=== PATIENT | female | born 1990 | race Caucasian/White ===

== ENCOUNTER 2016-10-27 11:42 | Emergency (ER) | payer OTHER ==
[2016-10-27 12:42] LABS: MEAN CORPUSCULAR HEMOGLOBIN 30.2 pg (27.0-33.0); MEAN CORPUSCULAR HGB CONC 33.4 g/dl (32.0-36.5); MEAN CORPUSCULAR VOLUME 90.7 fl (80.0-96.0); RED CELL DISTRIBUTION WIDTH 12.8 % (11.5-14.5); WHITE BLOOD COUNT 6.9 K/mm3 (4.0-10.0)
[2016-10-27 12:46] LABS: CONTROL LINE HCG INT CTR LINE PRESENT
[2016-10-27 13:03] LABS: ALBUMIN 3.8 GM/DL (3.2-5.2); ALBUMIN/GLOBULIN RATIO 1.09 (1.00-1.93); ALKALINE PHOSPHATASE 40 U/L (45-117); ALT/SGPT 62 U/L (12-78); ANION GAP 9 MEQ/L (8-16); AST/SGOT 35 U/L (15-37); BILIRUBIN,DIRECT 0.1 MG/DL (0.0-0.2); BILIRUBIN,TOTAL 0.4 MG/DL (0.2-1.0); BLOOD UREA NITROGEN 14 MG/DL (7-18); CALCIUM LEVEL 8.6 MG/DL (8.5-10.1); CARBON DIOXIDE LEVEL 24 MEQ/L (21-32); CHLORIDE LEVEL 109 MEQ/L (98-107); CREATININE FOR GFR 0.68 MG/DL (0.55-1.02); GLOMERULAR FILTRATION RATE > 60.0 (>60); GLUCOSE, FASTING 92 MG/DL (70-105); POTASSIUM SERUM 4.2 MEQ/L (3.5-5.1); SODIUM LEVEL 142 MEQ/L (136-145); TOTAL PROTEIN 7.3 GM/DL (6.4-8.2)
[2016-10-27 13:18] LABS: AMPHETAMINES LEVEL URINE NEGATIVE (NEGATIVE); BENZODIAZEPINES URINE NEGATIVE (NEGATIVE); COCAINE METABOLITE URINE NEGATIVE (NEGATIVE); CONTROL LINE INT CTR LINE PRESENT; METHADONE URINE NEGATIVE (NEGATIVE); OPIATES URINE NEGATIVE (NEGATIVE); TRICYCLIC ANTIDEPRESS URINE NEGATIVE (NEGATIVE)
[2016-10-27] MEDS ORDERED: ACETAMINOPHEN 325 MG TAB As Ordered ONE (13:49)
--- NOTE | 2016-10-27 15:52 | EDDOCDS ---
Physician Documentation [facility] Name: Deena Nye Age: 25 yrs Sex: Female : 1990 Arrival Date: 10/27/2016 Time: 11:[address] [facility] [facility] Private MD: Arnold Velasquez Disposition: 10/27/16 15:36 Discharged to Home/Self Care. Impression: Major depressive disorder, single episode, mild. - Condition is Stable. - Discharge Instructions: Depression, Adult. - Medication Reconciliation, Local Pharmacy Hours form. - Follow up: Arnold Velasquez; When: 2 - 3 days; Reason: Recheck today's complaints. - Problem is new. - Symptoms have improved. - Notes: You were seen in the ED for concerns of depression. Bloodwork showed no acute findings. Psychiatry was consulted and recommended that you may return home to continue following with mental health as an outpatient. Please call today to confirm your next appointment. Return to the ED for any worsening depression, thoughts of harming self or others or any other concerns. Historical: - Allergies: SULFA (SULFONAMIDES); - Home Meds: 1. Lexapro 30 mg Oral once daily (Last dose: 10/26/2016) 2. metformin 500 mg Oral tr24 1 tab once daily (Last dose: 10/26/2016) 3. Klonopin Unknown Oral Unknown pt unsure of dosage. medication just perscribed today. pt has yet to take medication. - PMHx: Polycystic Ovary Disease; Anxiety; Depression; - PSHx: Colonoscopy; Ear Tubes; - Social history: Smoking status: Patient states was never smoker of tobacco. No barriers to communication noted, The patient speaks fluent Romansh. - Family history: No immediate family members are acutely ill. - : The pt / caregiver states he / she is not on anticoagulants. Home medication list is obtained from the patient. - Exposure Risk Screening:: None identified. 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 3 in. (160.02 cm); Pain 0/10; 15:47 BP 146 / 86; Pulse 74; Resp 16; Temp 98.4(T); Pulse Ox 98% on R/A; Pain 3/10; sew 11:44 Body Mass Index 38.97 (99.79 kg, 160.02 cm) cmb MDM: 12:05 Consult PFS/PSA/Courtroom Clerk ordered. br1 12:05 Consult PFS/PSA/Courtroom Clerk: Patient's case requires discussion with on-call br1 Psychiatrist ordered. 12:05 PSA/PFS to call Nursing Digester, to enter patient data on [place] Safe Act if patient br1 involuntarily admitted or transferred for SI or HI ordered. 12:05 Confirm accurate psychiatric medication list and times of last dosage ordered. br1 12:05 Detain Pt Until Medically/PFS Cleared ordered. br1 12:06 Acetaminophen Level Ordered. EDMS 12:07 Basic Metabolic Profile Ordered. EDMS 12:07 Complete Blood Count Ordered. EDMS 12:07 Drug Eval Toxicology ED Only Ordered. EDMS 12:07 Ethyl Alcohol (ethanol) Ordered. EDMS 12:07 HCG,Serum Qualitative Ordered. EDMS 12:07 Liver Profile Ordered. EDMS 12:07 Salicylate Level Ordered. EDMS 12:07 Thyroid Stimulating Hormone Ordered. EDMS 12:22 REGULAR DIET PLASTIC OROZCO+DIET ordered. EDMS 13:28 Acetaminophen Level Reviewed. br1 13:28 Basic Metabolic Profile Reviewed. br1 13:28 Liver Profile Reviewed. br1 13:28 Salicylate Level Reviewed. br1 13:28 Complete Blood Count Reviewed. br1 13:28 Drug Eval Toxicology ED Only Reviewed. br1 13:28 Ethyl Alcohol (ethanol) Reviewed. br1 13:28 HCG,Serum Qualitative Reviewed. br1 13:28 Thyroid Stimulating Hormone Reviewed. br1 13:43 Acetaminophen Tablet 650 mg PO once ordered. br1 13:56 Consult PFS/PSA/Socail Worker: Cleared medically for eval ordered. br1 14:22 Consult PFS/PSA/Courtroom Clerk complete. ms 14:22 Consult PFS/PSA/Courtroom Clerk: Patient's case requires discussion with on-call ms Psychiatrist complete. 14:22 PSA/PFS to call Nursing Digester, to [place] patient data [place] Safe [place] if patient ms involuntarily admitted or transferred for SI or HI complete. 14:22 Consult PFS/PSA/Socail Worker: Cleared medically for eval complete. ms 15:50 Financial registration complete. zo Administered Medications: 13:55 Drug: Acetaminophen 650 mg [acetaminophen 325 mg tablet (2 tabs)] Route: PO; mb9 Signatures: Dispatcher [employer] Ronda Ziegler, PSA PSA Rosio Cates Brian, MD MD br1 Ross Mobley RN RN mb9 MTDD
--- NOTE | 2016-10-27 15:52 | EDDOCDS ---
Nurse's Notes [facility] Name: Deena Nye Age: 25 yrs Sex: Female : 1990 Arrival Date: 10/27/2016 Time: 11:[address] MD: Arnold Velasquez Diagnosis: Major depressive disorder, single episode, mild Presentation: 10/27 11:46 Presenting complaint: Patient states: Sent here by counselor for MHE increased mlb1 depression denies SI. Mental Health Triage Level: Level 1- Pt displays no suicidal or homicidal ideations and does not appear to be a danger to self or others. Adult Sepsis Screening: The patient does not have new or worsening altered mentation. Patient's respiratory rate is less than 22. Systolic blood pressure is greater than 100. Patient has a qSOFA score of 0- Negative Sepsis Screen. Suicide/Homicide risk assessment- The patient reports that he/she has not been admitted to an inpatient mental health facility in the last 30 days. The patient reports that he/she does not have a recent or current history of substance abuse. The patient reports that he/she has no prior history of suicide attempt and/or organized plan. The patient reports that he/she has experienced a significant life altering event in the last 30 days. The patient reports that he/she lacks adequate social support. The patient reports he/she has no significant chronic medical condition(s). Status: The patient is a dependent. Transition of care: patient was not received from another setting of care. 11:46 Acuity: LOUIE Level 3 mlb1 11:46 Method Of Arrival: Walkin/Carried/Asstd mlb1 Triage Assessment: 11:52 General: Appears in no apparent distress, Behavior is appropriate for age, cooperative. mb9 Pain: Location: headache Pain currently is 3 out of 10 on a pain scale. Pt Declines HIV testing. Neurological: Level of Consciousness is awake, alert, Oriented to person, place, time. Respiratory: Airway is patent Respiratory effort is even, unlabored. 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 Lexapro 30 mg Oral once daily (Last dose: 10/26/2016) 2. metformin 500 mg Oral tr24 1 tab once daily (Last dose: 10/26/2016) 3. Klonopin Unknown Oral Unknown pt unsure of dosage. medication just perscribed today. pt has yet to take medication. - PMHx: Polycystic Ovary Disease; Anxiety; Depression; - PSHx: Colonoscopy; Ear Tubes; - Social history: Smoking status: Patient states was never smoker of tobacco. No barriers to communication noted, The patient speaks fluent Tuvaluan. - Family history: No immediate family members are acutely ill. - : The pt / caregiver states he / she is not on anticoagulants. Home medication list is obtained from the patient. - Exposure Risk Screening:: None identified. Screenin:49 Screening information is obtained from the patient. Fall risk: No risks identified. mb9 Assistance ADL's: requires no assistance with activities of daily living. Abuse/DV Screen: The patient / caregiver reports he/she is: not in a situation that causes fear, pain or injury. Nutritional screening: No deficits noted. Advance Directives: There is no active DNR order. home support is adequate. Assessment: 13:55 Reassessment: Patient appears in no apparent distress at this time. General: Appears in mb9 no apparent distress, comfortable, Behavior is appropriate for age, cooperative, pleasant. Pain: Location: headache Pain currently is 4 out of 10 on a pain scale. Respiratory: Airway is patent Respiratory effort is even, unlabored. 15:31 Reassessment: Patient appears in no apparent distress at this time. General: Appears in mb9 no apparent distress, comfortable, Behavior is appropriate for age, cooperative. General: at bedside. security observing. . Respiratory: Airway is patent Respiratory effort is even, unlabored. Mental Health Eval: 12:02 Referral Information: Evaluation referral is generated by the patient's therapist matty Palmer. The patient was referred for evaluation because Pt reports feeling hopeless and helpless, is suicidal without plan. Per Ms. Palmer, pt miscarried around Brent and has been having marital discord with . 14:23 Mental health consult is initiated at 14:00. Status: The patient is not a ms service desk team lead or dependent. [facility] Behavioral Health: The patient is not an established patient of [facility] Behavior[facility]. Subjective: The patients chief complaint is Pt. reports that she and have been having marital issues and have been going to couples therapy. Pt. reports that in September 2016 she had a miscarriage and that her was supportive, stating they would try again to have another baby. Pt. reports that a few days ago her told her that he had been lying and stated he really does not want to have children. Pt. reports this has been very upsetting for her and now does not know were her marriage stands. She reports that she feels like she just wants to sleep and has not been feeling much of anything towards her . Pt. denies SI/HI, she does contract for safety. Pt. reports she saw her psychiatrist today and briefly saw her therapist who is in same office as psychiatrist although it was not a scheduled appt and was sent here for evaluation. Pt. states that she did not make suicidal statement, rather did say she felt as though she did not want to be here, meaning she did not feel like talking about everything due to feeling overwhelmed. Pt. was communicative during interview , pleasant.. Delusions are denied. Patient's mood is depressed, Hallucinations are denied. Mental Health history: anxiety, depression, Mental Health Admissions: [facility] at age 14. Current Outpatient Mental Health Services: Psychiatrist / [place] [place] [facility]. Therapist / Agency: Marion Hargrove, gricelda . Current living environment is The patient currently lives with his / her spouse, . Patient presents to Emergency Department with the following symptoms within the past 2 weeks: anxiety, depressed mood, marital problem. Substance abuse: Pt denies. Mental status exam: Patients appearance is appropriate, Patient's behavior is cooperative, Speech is normal. Affect is appropriate. Mood is depressed. Hallucinations are denied. Appetite is normal. Memory is good. Energy level is normal. Content of thought is normal. Thought process is intact. Cognitive level is oriented to person, place, time and situation Patient's insight is good. Judgement is good. Rapport with interviewer is good. Suicidal Ideation is denied. Homicidal ideation is denied. Disposition: Medically cleared for disposition by Manuel Mata MD Psychiatric Consult is performed by phone with Dr Baldemar Sorensen The patient has a safe destination which is home with . Vital Signs: 11:44 BP 123 / 75; Pulse 68; Resp 16; Temp 98.3(O); Pulse Ox 100% ; Weight 99.79 kg; Height 5 cmb ft. 3 in. (160.02 cm); Pain 0/10; 15:47 BP 146 / 86; Pulse 74; Resp 16; Temp 98.4(T); Pulse Ox 98% on R/A; Pain 3/10; sew 11:44 Body Mass Index 38.97 (99.79 kg, 160.02 cm) cmb Vitals: 11:44 Log In Time: October 27, 2016 at 11:35. cmb ED Course: 11:43 Patient visited by Goldie Shafer. cmb 11:43 Patient moved to Waiting cmb 11:44 Arnold Velasquez is Private Physician. cmb 11:46 Patient visited by Ross Jay RN. mlb1 11:48 Triage Initiated mlb1 11:54 Patient moved to [place] [id number] 12:06 Manuel Mata MD is Attending Physician. br1 12:09 Patient visited by Manisha Gandhi. sew 12:09 Psych Safety Check: Location: Psych Room. Visual Assessment: Cooperative. sew 12:19 Acetaminophen Level Sent. sew 12:19 Basic Metabolic Profile Sent. sew 12:19 Drug Eval Toxicology ED Only Sent. sew 12:19 Complete Blood Count Sent. sew 12:19 HCG,Serum Qualitative Sent. sew 12:19 Ethyl Alcohol (ethanol) Sent. sew 12:19 Liver Profile Sent. sew 12:19 Salicylate Level Sent. sew 12:19 Thyroid Stimulating Hormone Sent. sew 12:19 Labs drawn. (by ED staff). Sent per order to lab. Urine collected. Clean catch sew specimen. Urine specimen sent to lab. 12:20 Pt greeted and oriented to ED. Patient advised of names of staff involved in care, sew location of call luna, wait times and NPO status. Bed in low position. Call light in reach. Security observing. Door closed. Noise minimized. Moved to private room. Psych Safety Check: Location: Psych Room. Visual Assessment: Cooperative. 12:21 Patient visited by Manisha Gandhi. sew 12:32 Patient visited by Manisha Gandhi. sew 12:32 Psych Safety Check: Location: Psych Room. Visual Assessment: Cooperative. sew 12:49 Patient visited by Manisha Gandhi. sew 12:49 Psych Safety Check: Location: Psych Room. Visual Assessment: Cooperative. sew 13:08 Psych Safety Check: Location: Psych Room. Visual Assessment: Cooperative. sew 13:09 Patient visited by Manisha Gandhi. sew 13:13 Psych Safety Check: Location: Psych Room. Visual Assessment: Cooperative. sew 13:13 Warm blanket given. Diet: Patient given regular meal. sew 13:14 Patient visited by Manisha Gandhi. sew 13:29 Patient visited by Manisha Gandhi. sew 13:29 Psych Safety Check: Location: Psych Room. Visual Assessment: Cooperative, pt family in sew room at this time. 13:40 Patient visited by Manisha Gandhi. sew 13:40 Psych Safety Check: Location: Psych Room. Visual Assessment: Cooperative. sew 13:42 Patient visited by Manuel Mata MD. br1 14:03 Patient visited by Manisha Gandhi. sew 14:03 Psych Safety Check: Location: Psych Room. Visual Assessment: Cooperative. sew 14:16 Psych Safety Check: Location: Psych Room. Visual Assessment: Cooperative. sew 14:17 Patient visited by Manisha Gandhi. sew 14:37 Patient visited by Manisha Gandhi. sew 14:37 Psych Safety Check: Location: Psych Room. Visual Assessment: Cooperative. sew 15:35 Arnold Velasquez is Referral Physician. br1 15:35 Psych Safety Check: Location: Psych Room. Visual Assessment: Cooperative. sew 15:36 Patient visited by Manisha Gandhi. sew 15:47 Patient visited by Manisha Gandhi. sew 15:49 The patient / caregiver is instructed regarding the plan of care and ED course. mb9 15:49 No IV's were initiated during this patient's visit. No procedures done that require mb9 assistance. Administered Medications: 13:55 Drug: Acetaminophen 650 mg [acetaminophen 325 mg tablet (2 tabs)] Route: PO; mb9 Order Results: Lab Order: Acetaminophen Level; SPEC'M 10/27/16 12:18 Test: ACETAMINOPHEN LEVEL; Value: < 2.0; Range: 10.0-30.0; Abnormal: Below low normal; Units: UG/ML; Status: F Lab Order: Basic Metabolic Profile; SPEC'M 10/27/16 12:18 Test: GLUCOSE, FASTING; Value: 92; Range: 70-105; Units: MG/DL; Status: F Test: BLOOD UREA NITROGEN; Value: 14; Range: 7-18; Units: MG/DL; Status: F Test: CREATININE FOR GFR; Value: 0.68; Range: 0.55-1.02; Units: MG/DL; Status: F Test: SODIUM LEVEL; Range: 136-145; Units: MEQ/L; Status: I Test: POTASSIUM SERUM; Range: 3.5-5.1; Units: MEQ/L; Status: I Test: CHLORIDE LEVEL; Range: 98-107; Units: MEQ/L; Status: I Test: CARBON DIOXIDE LEVEL; Range: 21-32; Units: MEQ/L; Status: I Test: ANION GAP; Range: 8-16; Units: MEQ/L; Status: I Test: CALCIUM LEVEL; Range: 8.5-10.1; Units: MG/DL; Status: I Test: GLOMERULAR FILTRATION RATE; Value: > 60.0; Range: >60; Status: F Test: SODIUM LEVEL; Value: 142; Range: 136-145; Units: MEQ/L; Status: F Test: POTASSIUM SERUM; Value: 4.2; Range: 3.5-5.1; Units: MEQ/L; Status: F Test: CHLORIDE LEVEL; Value: 109; Range: 98-107; Abnormal: Above high normal; Units: MEQ/L; Status: F Test: CARBON DIOXIDE LEVEL; Value: 24; Range: 21-32; Units: MEQ/L; Status: F Test: ANION GAP; Value: 9; Range: 8-16; Units: MEQ/L; Status: F Test: CALCIUM LEVEL; Value: 8.6; Range: 8.5-10.1; Units: MG/DL; Status: F Test Note: ; Units are mL/min/1.73 m2 Chronic Kidney Disease Staging per NKF: Stage I & II GFR >=60 Normal to Mildly Decreased Stage III GFR 30-59 Moderately Decreased Stage IV GFR 15-29 Severely Decreased Stage V GFR <15 Very Little GFR Left ESRD GFR <15 on RADIATION PROTECTION SPECIALIST Lab Order: Complete Blood Count; SPEC'M 10/27/16 12:18 Test: WHITE BLOOD COUNT; Value: 6.9; Range: 4.0-10.0; Units: K/mm3; Status: F Test: RED BLOOD COUNT; Value: 4.18; Range: 4.00-5.40; Units: M/mm3; Status: F Test: HEMOGLOBIN; Value: 12.7; Range: 12.0-16.0; Units: g/dl; Status: F Test: HEMATOCRIT; Value: 37.9; Range: 36.0-47.0; Units: %; Status: F Test: MEAN CORPUSCULAR VOLUME; Value: 90.7; Range: 80.0-96.0; Units: fl; Status: F Test: MEAN CORPUSCULAR HEMOGLOBIN; Value: 30.2; Range: 27.0-33.0; Units: pg; Status: F Test: MEAN CORPUSCULAR HGB CONC; Value: 33.4; Range: 32.0-36.5; Units: g/dl; Status: F Test: RED CELL DISTRIBUTION WIDTH; Value: 12.8; Range: 11.5-14.5; Units: %; Status: F Test: PLATELET COUNT, AUTOMATED; Value: 278; Range: 150-450; Units: k/mm3; Status: F Lab Order: Drug Eval Toxicology ED Only; SPEC'M 10/27/16 12:10 Test: AMPHETAMINES LEVEL URINE; Value: NEGATIVE; Range: NEGATIVE; Status: F Test: BARBITURATES URINE; Value: NEGATIVE; Range: NEGATIVE; Status: F Test: BENZODIAZEPINES URINE; Value: NEGATIVE; Range: NEGATIVE; Status: F Test: CANNABINOIDS URINE; Value: NEGATIVE; Range: NEGATIVE; Status: F Test: COCAINE METABOLITE URINE; Value: NEGATIVE; Range: NEGATIVE; Status: F Test: METHADONE URINE; Value: NEGATIVE; Range: NEGATIVE; Status: F Test: OPIATES URINE; Value: NEGATIVE; Range: NEGATIVE; Status: F Test: TRICYCLIC ANTIDEPRESS URINE; Value: NEGATIVE; Range: NEGATIVE; Status: F Test Note: ; ALL PRESUMPTIVE POSITIVE FINDINGS ARE UNCONFIRMED NORMAL VALUES THRESHOLD IN NG/ML AMPHETAMINES 1000 METHAMPHETAMINES 1000 BARBITURATES 300 BENZODIAZEPINES 300 CANNABINOIDS (THC) 50 COCAINE METABOLITE 300 METHADONE 300 OPIATES 300 PHENCYCLIDINE 25 TRICYCLIC ANTIDEPRESSANTS 1000 RESULTS ARE FOR MEDICAL PURPOSES ONLY. ALL URINE SPECIMENS WILL BE SAVED FOR 3 DAYS. IF CONFIRMATION OF A PRESUMPTIVE POSTIVE SCREEN RESULT IS DESIRED, CALL CHEMISTRY ([phone]) AND REQUEST URINE TO BE SENT TO REFERENCE LAB. FOR A LIST OF CLOSELY RELATED COMPOUNDS PLEASE CALL THE LAB. Lab Order: Ethyl Alcohol (ethanol); SPEC'M 10/27/16 12:18 Test: ETHYL ALCOHOL (ETHANOL); Value: < 0.003; Range: 0.000-0.010; Units: %; Status: F Lab Order: HCG,Serum Qualitative; SPEC'M 10/27/16 12:18 Test: HCG, SERUM QUALITATIVE; Value: NEGATIVE; Range: NEGATIVE; Status: F Lab Order: Liver Profile; SPEC'M 10/27/16 12:18 Test: AST/SGOT; Value: 35; Range: 15-37; Units: U/L; Status: F Test: ALT/SGPT; Value: 62; Range: 12-78; Units: U/L; Status: F Test: ALKALINE PHOSPHATASE; Value: 40; Range: 45-117; Abnormal: Below low normal; Units: U/L; Status: F Test: BILIRUBIN,TOTAL; Value: 0.4; Range: 0.2-1.0; Units: MG/DL; Status: F Test: BILIRUBIN,DIRECT; Value: 0.1; Range: 0.0-0.2; Units: MG/DL; Status: F Test: TOTAL PROTEIN; Value: 7.3; Range: 6.4-8.2; Units: GM/DL; Status: F Test: ALBUMIN; Value: 3.8; Range: 3.2-5.2; Units: GM/DL; Status: F Test: ALBUMIN/GLOBULIN RATIO; Value: 1.09; Range: 1.00-1.93; Status: F Lab Order: Salicylate Level; [facility] 10/27/16 12:18 Test: SALICYLATE LEVEL; Value: < 1.7; Range: 5.0-30.0; Abnormal: Below low normal; Units: MG/DL; Status: F Lab Order: Thyroid Stimulating Hormone; SPEC'M 10/27/16 12:18 Test: THYROID STIMULATING HORMONE; Value: 2.180; Range: 0.358-3.740; Units: uIU/ML; Status: F Outcome: 15:36 Discharge ordered by Provider. br1 15:49 Discharge Assessment: Patient awake, alert and oriented x 3. No cognitive and/or mb9 functional deficits noted. Patient verbalized understanding of disposition instructions. patient administered narcotics - no. The following High Risk Discharge criteria are identified: None. Discharged to home ambulatory. Condition: good Condition: stable. Discharge instructions given to patient, Instructed on discharge instructions, follow up and referral plans. Demonstrated understanding of instructions, medications, Pt was receptive of discharge instructions/ teaching. No special radiology studies were completed. Property :Personal belongings accompany Pt. 15:51 Patient left the ED. mb9 Signatures: Soy Martinez, PSA PSA ac Ronda Chun, PSA PSA Ross Walker RN RN mlb1 Manuel Mata MD MD br1 Goldie Shafer Sarah sew Belles, Michael, RN RN mb9 MTDD
--- NOTE | 2016-10-29 16:52 | EDDOCDS ---
Nurse's Notes [facility] Name: Deena Nye Age: 25 yrs Sex: Female : 1990 Arrival Date: 10/27/2016 Time: 11:[address] MD: Arnold Velasquez Diagnosis: Major depressive disorder, single episode, mild Presentation: 10/27 11:46 Presenting complaint: Patient states: Sent here by counselor for MHE increased mlb1 depression denies SI. Mental Health Triage Level: Level 1- Pt displays no suicidal or homicidal ideations and does not appear to be a danger to self or others. Adult Sepsis Screening: The patient does not have new or worsening altered mentation. Patient's respiratory rate is less than 22. Systolic blood pressure is greater than 100. Patient has a qSOFA score of 0- Negative Sepsis Screen. Suicide/Homicide risk assessment- The patient reports that he/she has not been admitted to an inpatient mental health facility in the last 30 days. The patient reports that he/she does not have a recent or current history of substance abuse. The patient reports that he/she has no prior history of suicide attempt and/or organized plan. The patient reports that he/she has experienced a significant life altering event in the last 30 days. The patient reports that he/she lacks adequate social support. The patient reports he/she has no significant chronic medical condition(s). Status: The patient is a dependent. Transition of care: patient was not received from another setting of care. 11:46 Acuity: LOUIE Level 3 mlb1 11:46 Method Of Arrival: Walkin/Carried/Asstd mlb1 Triage Assessment: 11:52 General: Appears in no apparent distress, Behavior is appropriate for age, cooperative. mb9 Pain: Location: headache Pain currently is 3 out of 10 on a pain scale. Pt Declines HIV testing. Neurological: Level of Consciousness is awake, alert, Oriented to person, place, time. Respiratory: Airway is patent Respiratory effort is even, unlabored. CHIPS SCREEN TENDER: 11:52 LMP 08/21/2016 mb9 Historical: - Allergies: SULFA (SULFONAMIDES); - Home Meds: 1. Lexapro 30 mg Oral once daily (Last dose: 10/26/2016) 2. metformin 500 mg Oral tr24 1 tab once daily (Last dose: 10/26/2016) 3. Klonopin Unknown Oral Unknown pt unsure of dosage. medication just perscribed today. pt has yet to take medication. - PMHx: Polycystic Ovary Disease; Anxiety; Depression; - PSHx: Colonoscopy; Ear Tubes; - Social history: Smoking status: Patient states was never smoker of tobacco. No barriers to communication noted, The patient speaks fluent [place]. - Family history: No immediate family members are acutely ill. - : The pt / caregiver states he / she is not on anticoagulants. Home medication list is obtained from the patient. - Exposure Risk Screening:: None identified. Screenin:49 Screening information is obtained from the patient. Fall risk: No risks identified. mb9 Assistance ADL's: requires no assistance with activities of daily living. Abuse/DV Screen: The patient / caregiver reports he/she is: not in a situation that causes fear, pain or injury. Nutritional screening: No deficits noted. Advance Directives: There is no active DNR order. home support is adequate. Assessment: 13:55 Reassessment: Patient appears in no apparent distress at this time. General: Appears in mb9 no apparent distress, comfortable, Behavior is appropriate for age, cooperative, pleasant. Pain: Location: headache Pain currently is 4 out of 10 on a pain scale. Respiratory: Airway is patent Respiratory effort is even, unlabored. 15:31 Reassessment: Patient appears in no apparent distress at this time. General: Appears in mb9 no apparent distress, comfortable, Behavior is appropriate for age, cooperative. General: at bedside. security observing. . Respiratory: Airway is patent Respiratory effort is even, unlabored. Mental Health Eval: 12:02 Referral Information: Evaluation referral is generated by the patient's therapist matty Palmer. The patient was referred for evaluation because Pt reports feeling hopeless and helpless, is suicidal without plan. Per Ms. Palmer, pt miscarried around [place] and has been having marital discord with . 14:23 Mental health consult is initiated at 14:00. 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 [facility] Behavioral Health: The patient is not an established patient of [facility]. Subjective: The patients chief complaint is Pt. reports that she and have been having marital issues and have been going to couples therapy. Pt. reports that in September 2016 she had a miscarriage and that her was supportive, stating they would try again to have another baby. Pt. reports that a few days ago her told her that he had been lying and stated he really does not want to have children. Pt. reports this has been very upsetting for her and now does not know were her marriage stands. She reports that she feels like she just wants to sleep and has not been feeling much of anything towards her . Pt. denies SI/HI, she does contract for safety. Pt. reports she saw her psychiatrist today and briefly saw her therapist who is in same office as psychiatrist although it was not a scheduled appt and was sent here for evaluation. Pt. states that she did not make suicidal statement, rather did say she felt as though she did not want to be here, meaning she did not feel like talking about everything due to feeling overwhelmed. Pt. was communicative during interview , pleasant.. Delusions are denied. Patient's mood is depressed, Hallucinations are denied. Mental Health history: anxiety, depression, Mental Health Admissions: [facility] at age 14. Current Outpatient Mental Health Services: Psychiatrist / Agency: Dr. Shafer, [place] [facility]. Therapist / Agency: Marion Hargrove, gricelda . Current living environment is The patient currently lives with his / her spouse, . Patient presents to Emergency Department with the following symptoms within the past 2 weeks: anxiety, depressed mood, marital problem. Substance abuse: Pt denies. Mental status exam: Patients appearance is appropriate, Patient's behavior is cooperative, Speech is normal. Affect is appropriate. Mood is depressed. Hallucinations are denied. Appetite is normal. Memory is good. Energy level is normal. Content of thought is normal. Thought process is intact. Cognitive level is oriented to person, place, time and situation Patient's insight is good. Judgement is good. Rapport with interviewer is good. Suicidal Ideation is denied. Homicidal ideation is denied. Disposition: Medically cleared for disposition by Manuel Mata MD Psychiatric Consult is performed by phone with Dr Baldemar Sorensen The patient has a safe destination which is home with . Vital Signs: 11:44 BP 123 / 75; Pulse 68; Resp 16; Temp 98.3(O); Pulse Ox 100% ; Weight 99.79 kg; Height 5 cmb ft. 3 in. (160.02 cm); Pain 0/10; 15:47 BP 146 / 86; Pulse 74; Resp 16; Temp 98.4(T); Pulse Ox 98% on R/A; Pain 3/10; sew 11:44 Body Mass Index 38.97 (99.79 kg, 160.02 cm) cmb Vitals: 11:44 Log In Time: October 27, 2016 at 11:35. cmb ED Course: 11:43 Patient visited by Goldie Shafer. cmb 11:43 Patient moved to Waiting cmb 11:44 Arnold Velasquez is Private Physician. cmb 11:46 Patient visited by Ross Jay RN. mlb1 11:48 Triage Initiated mlb1 11:54 Patient moved to [place] [id number] 12:06 Manuel Mata MD is Attending Physician. br1 12:09 Patient visited by Manisha Gandhi. sew 12:09 Psych Safety Check: Location: Psych Room. Visual Assessment: Cooperative. sew 12:19 Acetaminophen Level Sent. sew 12:19 Basic Metabolic Profile Sent. sew 12:19 Drug Eval Toxicology ED Only Sent. sew 12:19 Complete Blood Count Sent. sew 12:19 HCG,Serum Qualitative Sent. sew 12:19 Ethyl Alcohol (ethanol) Sent. sew 12:19 Liver Profile Sent. sew 12:19 Salicylate Level Sent. sew 12:19 Thyroid Stimulating Hormone Sent. sew 12:19 Labs drawn. (by ED staff). Sent per order to lab. Urine collected. Clean catch sew specimen. Urine specimen sent to lab. 12:20 Pt greeted and oriented to ED. Patient advised of names of staff involved in care, sew location of call luna, wait times and NPO status. Bed in low position. Call light in reach. Security observing. Door closed. Noise minimized. Moved to private room. Psych Safety Check: Location: Psych Room. Visual Assessment: Cooperative. 12:21 Patient visited by Manisha Gandhi. sew 12:32 Patient visited by Manisha Gandhi. sew 12:32 Psych Safety Check: Location: Psych Room. Visual Assessment: Cooperative. sew 12:49 Patient visited by Manisha Gandhi. sew 12:49 Psych Safety Check: Location: Psych Room. Visual Assessment: Cooperative. sew 13:08 Psych Safety Check: Location: Psych Room. Visual Assessment: Cooperative. sew 13:09 Patient visited by Manisha Gandhi. sew 13:13 Psych Safety Check: Location: Psych Room. Visual Assessment: Cooperative. sew 13:13 Warm blanket given. Diet: Patient given regular meal. sew 13:14 Patient visited by Manisha Gandhi. sew 13:29 Patient visited by Manisha Gandhi. sew 13:29 Psych Safety Check: Location: Psych Room. Visual Assessment: Cooperative, pt family in sew room at this time. 13:40 Patient visited by Manisha Gandhi. sew 13:40 Psych Safety Check: Location: Psych Room. Visual Assessment: Cooperative. sew 13:42 Patient visited by Manuel Mata MD. br1 14:03 Patient visited by Manisha Gandhi. sew 14:03 Psych Safety Check: Location: Psych Room. Visual Assessment: Cooperative. sew 14:16 Psych Safety Check: Location: Psych Room. Visual Assessment: Cooperative. sew 14:17 Patient visited by Manisha Gandhi. sew 14:37 Patient visited by Manisha Gandhi. sew 14:37 Psych Safety Check: Location: Psych Room. Visual Assessment: Cooperative. sew 15:35 Arnold Velasquez is Referral Physician. br1 15:35 Psych Safety Check: Location: Psych Room. Visual Assessment: Cooperative. sew 15:36 Patient visited by Manisha Gandhi. sew 15:47 Patient visited by Manisha Gandhi. sew 15:49 The patient / caregiver is instructed regarding the plan of care and ED course. mb9 15:49 No IV's were initiated during this patient's visit. No procedures done that require mb9 assistance. 15:52 [facility] Payment Agreement was scanned into [employer] and attached to record. zo 10/28 10:51 T-Sheet-- Draft Copy was scanned into [employer] and attached to record. gb Administered Medications: 10/27 13:55 Drug: Acetaminophen 650 mg [acetaminophen 325 mg tablet (2 tabs)] Route: PO; mb9 Order Results: Lab Order: Acetaminophen Level; SPEC'M 10/27/16 12:18 Test: ACETAMINOPHEN LEVEL; Value: < 2.0; Range: 10.0-30.0; Abnormal: Below low normal; Units: UG/ML; Status: F Lab Order: Basic Metabolic Profile; SPEC'M 10/27/16 12:18 Test: GLUCOSE, FASTING; Value: 92; Range: 70-105; Units: MG/DL; Status: F Test: BLOOD UREA NITROGEN; Value: 14; Range: 7-18; Units: MG/DL; Status: F Test: CREATININE FOR GFR; Value: 0.68; Range: 0.55-1.02; Units: MG/DL; Status: F Test: SODIUM LEVEL; Range: 136-145; Units: MEQ/L; Status: I Test: POTASSIUM SERUM; Range: 3.5-5.1; Units: MEQ/L; Status: I Test: CHLORIDE LEVEL; Range: 98-107; Units: MEQ/L; Status: I Test: CARBON DIOXIDE LEVEL; Range: 21-32; Units: MEQ/L; Status: I Test: ANION GAP; Range: 8-16; Units: MEQ/L; Status: I Test: CALCIUM LEVEL; Range: 8.5-10.1; Units: MG/DL; Status: I Test: GLOMERULAR FILTRATION RATE; Value: > 60.0; Range: >60; Status: F Test: SODIUM LEVEL; Value: 142; Range: 136-145; Units: MEQ/L; Status: F Test: POTASSIUM SERUM; Value: 4.2; Range: 3.5-5.1; Units: MEQ/L; Status: F Test: CHLORIDE LEVEL; Value: 109; Range: 98-107; Abnormal: Above high normal; Units: MEQ/L; Status: F Test: CARBON DIOXIDE LEVEL; Value: 24; Range: 21-32; Units: MEQ/L; Status: F Test: ANION GAP; Value: 9; Range: 8-16; Units: MEQ/L; Status: F Test: CALCIUM LEVEL; Value: 8.6; Range: 8.5-10.1; Units: MG/DL; Status: F Test Note: ; Units are mL/min/1.73 m2 Chronic Kidney Disease Staging per NKF: Stage I & II GFR >=60 Normal to Mildly Decreased Stage III GFR 30-59 Moderately Decreased Stage IV GFR 15-29 Severely Decreased Stage V GFR <15 Very Little GFR Left ESRD GFR <15 on LUMBER KILN OPERATOR Lab Order: Complete Blood Count; SPEC'M 10/27/16 12:18 Test: WHITE BLOOD COUNT; Value: 6.9; Range: 4.0-10.0; Units: K/mm3; Status: F Test: RED BLOOD COUNT; Value: 4.18; Range: 4.00-5.40; Units: M/mm3; Status: F Test: HEMOGLOBIN; Value: 12.7; Range: 12.0-16.0; Units: g/dl; Status: F Test: HEMATOCRIT; Value: 37.9; Range: 36.0-47.0; Units: %; Status: F Test: MEAN CORPUSCULAR VOLUME; Value: 90.7; Range: 80.0-96.0; Units: fl; Status: F Test: MEAN CORPUSCULAR HEMOGLOBIN; Value: 30.2; Range: 27.0-33.0; Units: pg; Status: F Test: MEAN CORPUSCULAR HGB CONC; Value: 33.4; Range: 32.0-36.5; Units: g/dl; Status: F Test: RED CELL DISTRIBUTION WIDTH; Value: 12.8; Range: 11.5-14.5; Units: %; Status: F Test: PLATELET COUNT, AUTOMATED; Value: 278; Range: 150-450; Units: k/mm3; Status: F Lab Order: Drug Eval Toxicology ED Only; SPEC'M 10/27/16 12:10 Test: AMPHETAMINES LEVEL URINE; Value: NEGATIVE; Range: NEGATIVE; Status: F Test: BARBITURATES URINE; Value: NEGATIVE; Range: NEGATIVE; Status: F Test: BENZODIAZEPINES URINE; Value: NEGATIVE; Range: NEGATIVE; Status: F Test: CANNABINOIDS URINE; Value: NEGATIVE; Range: NEGATIVE; Status: F Test: COCAINE METABOLITE URINE; Value: NEGATIVE; Range: NEGATIVE; Status: F Test: METHADONE URINE; Value: NEGATIVE; Range: NEGATIVE; Status: F Test: OPIATES URINE; Value: NEGATIVE; Range: NEGATIVE; Status: F Test: TRICYCLIC ANTIDEPRESS URINE; Value: NEGATIVE; Range: NEGATIVE; Status: F Test Note: ; ALL PRESUMPTIVE POSITIVE FINDINGS ARE UNCONFIRMED NORMAL VALUES THRESHOLD IN NG/ML AMPHETAMINES 1000 METHAMPHETAMINES 1000 BARBITURATES 300 BENZODIAZEPINES 300 CANNABINOIDS (THC) 50 COCAINE METABOLITE 300 METHADONE 300 OPIATES 300 PHENCYCLIDINE 25 TRICYCLIC ANTIDEPRESSANTS 1000 RESULTS ARE FOR MEDICAL PURPOSES ONLY. ALL URINE SPECIMENS WILL BE SAVED FOR 3 DAYS. IF CONFIRMATION OF A PRESUMPTIVE POSTIVE SCREEN RESULT IS DESIRED, CALL CHEMISTRY ([phone]) AND REQUEST URINE TO BE SENT TO REFERENCE LAB. FOR A LIST OF CLOSELY RELATED COMPOUNDS PLEASE CALL THE LAB. Lab Order: Ethyl Alcohol (ethanol); SPEC'M 10/27/16 12:18 Test: ETHYL ALCOHOL (ETHANOL); Value: < 0.003; Range: 0.000-0.010; Units: %; Status: F Lab Order: HCG,Serum Qualitative; SPEC'M 10/27/16 12:18 Test: HCG, SERUM QUALITATIVE; Value: NEGATIVE; Range: NEGATIVE; Status: F Lab Order: Liver Profile; SPEC'M 10/27/16 12:18 Test: AST/SGOT; Value: 35; Range: 15-37; Units: U/L; Status: F Test: ALT/SGPT; Value: 62; Range: 12-78; Units: U/L; Status: F Test: ALKALINE PHOSPHATASE; Value: 40; Range: 45-117; Abnormal: Below low normal; Units: U/L; Status: F Test: BILIRUBIN,TOTAL; Value: 0.4; Range: 0.2-1.0; Units: MG/DL; Status: F Test: BILIRUBIN,DIRECT; Value: 0.1; Range: 0.0-0.2; Units: MG/DL; Status: F Test: TOTAL PROTEIN; Value: 7.3; Range: 6.4-8.2; Units: GM/DL; Status: F Test: ALBUMIN; Value: 3.8; Range: 3.2-5.2; Units: GM/DL; Status: F Test: ALBUMIN/GLOBULIN RATIO; Value: 1.09; Range: 1.00-1.93; Status: F Lab Order: Salicylate Level; SPEC'M 10/27/16 12:18 Test: SALICYLATE LEVEL; Value: < 1.7; Range: 5.0-30.0; Abnormal: Below low normal; Units: MG/DL; Status: F Lab Order: Thyroid Stimulating Hormone; SPEC'M 10/27/16 12:18 Test: THYROID STIMULATING HORMONE; Value: 2.180; Range: 0.358-3.740; Units: uIU/ML; Status: F Outcome: 15:36 Discharge ordered by Provider. br1 15:49 Discharge Assessment: Patient awake, alert and oriented x 3. No cognitive and/or mb9 functional deficits noted. Patient verbalized understanding of disposition instructions. patient administered narcotics - no. The following High Risk Discharge criteria are identified: None. Discharged to home ambulatory. Condition: good Condition: stable. Discharge instructions given to patient, Instructed on discharge instructions, follow up and referral plans. Demonstrated understanding of instructions, medications, Pt was receptive of discharge instructions/ teaching. No special radiology studies were completed. Property :Personal belongings accompany Pt. 15:51 Patient left the ED. mb9 Signatures: Soy Martinez, LIBBY PSA ac Ronda Chun, PSA PSA ms Payal Hinojosa, Reg Reg gb Ross Jay, RN RN mlb1 Rosio Ochoa Brian, MD MD br1 Goldie Shafer Sarah sew Belles, Michael,RN RN mb9 Chart Complete LOIS
--- NOTE | 2016-10-29 16:52 | EDDOCDS ---
Physician Documentation [facility] Name: Deena Nye Age: 25 yrs Sex: Female : 1990 Arrival Date: 10/27/2016 Time: 11:42 Bed [facility] Private MD: Arnold Velasquez Disposition: 10/27/16 15:36 Discharged to Home/Self Care. Impression: Major depressive disorder, single episode, mild. - Condition is Stable. - Discharge Instructions: Depression, Adult. - Medication Reconciliation, Local Pharmacy Hours form. - Follow up: Arnold Velasquez; When: 2 - 3 days; Reason: Recheck today's complaints. - Problem is new. - Symptoms have improved. - Notes: You were seen in the ED for concerns of depression. Bloodwork showed no acute findings. Psychiatry was consulted and recommended that you may return home to continue following with mental health as an outpatient. Please call today to confirm your next appointment. Return to the ED for any worsening depression, thoughts of harming self or others or any other concerns. Historical: - Allergies: SULFA (SULFONAMIDES); - Home Meds: 1. Lexapro 30 mg Oral once daily (Last dose: 10/26/2016) 2. metformin 500 mg Oral tr24 1 tab once daily (Last dose: 10/26/2016) 3. Klonopin Unknown Oral Unknown pt unsure of dosage. medication just perscribed today. pt has yet to take medication. - PMHx: Polycystic Ovary Disease; Anxiety; Depression; - PSHx: Colonoscopy; Ear Tubes; - Social history: Smoking status: Patient states was never smoker of tobacco. No barriers to communication noted, The patient speaks fluent Malay. - Family history: No immediate family members are acutely ill. - : The pt / caregiver states he / she is not on anticoagulants. Home medication list is obtained from the patient. - Exposure Risk Screening:: None identified. SCRAP SEPARATOR: 10/27 11:52 LMP 08/21/2016 mb9 Vital Signs: 11:44 BP 123 / 75; Pulse 68; Resp 16; Temp 98.3(O); Pulse Ox 100% ; Weight 99.79 kg / 220 cmb lbs; Height 5 ft. 3 in. (160.02 cm); Pain 0/10; 15:47 BP 146 / 86; Pulse 74; Resp 16; Temp 98.4(T); Pulse Ox 98% on R/A; Pain 3/10; sew 11:44 Body Mass Index 38.97 (99.79 kg, 160.02 cm) cmb MDM: 12:05 Consult PFS/PSA/Technical Document Writer ordered. br1 12:05 Consult PFS/PSA/Technical Document Writer: Patient's case requires discussion with on-call br1 Psychiatrist ordered. 12:05 PSA/PFS to call Nursing Recovery Agent, to enter patient data on [place] Safe Act if patient br1 involuntarily admitted or transferred for SI or HI ordered. 12:05 Confirm accurate psychiatric medication list and times of last dosage ordered. br1 12:05 Detain Pt Until Medically/PFS Cleared ordered. br1 12:06 Acetaminophen Level Ordered. EDMS 12:07 Basic Metabolic Profile Ordered. EDMS 12:07 Complete Blood Count Ordered. EDMS 12:07 Drug Eval Toxicology ED Only Ordered. EDMS 12:07 Ethyl Alcohol (ethanol) Ordered. EDMS 12:07 HCG,Serum Qualitative Ordered. EDMS 12:07 Liver Profile Ordered. EDMS 12:07 Salicylate Level Ordered. EDMS 12:07 Thyroid Stimulating Hormone Ordered. EDMS 12:22 REGULAR DIET PLASTIC OROZCO+DIET ordered. EDMS 13:28 Acetaminophen Level Reviewed. br1 13:28 Basic Metabolic Profile Reviewed. br1 13:28 Liver Profile Reviewed. br1 13:28 Salicylate Level Reviewed. br1 13:28 Complete Blood Count Reviewed. br1 13:28 Drug Eval Toxicology ED Only Reviewed. br1 13:28 Ethyl Alcohol (ethanol) Reviewed. br1 13:28 HCG,Serum Qualitative Reviewed. br1 13:28 Thyroid Stimulating Hormone Reviewed. br1 13:43 Acetaminophen Tablet 650 mg PO once ordered. br1 13:56 Consult PFS/PSA/Socail Worker: Cleared medically for eval ordered. br1 14:22 Consult PFS/PSA/Technical Document Writer complete. ms 14:22 Consult PFS/PSA/Technical Document Writer: Patient's case requires discussion with on-call ms Psychiatrist complete. 14:22 PSA/PFS to call Nursing Recovery Agent, to enter patient data [place] Safe Act if patient ms involuntarily admitted or transferred for SI or HI complete. 14:22 Consult PFS/PSA/Socail Worker: Cleared medically for eval complete. ms 15:50 Financial registration complete. zo 15:52 [facility] Payment Agreement was scanned into [employer] and attached to record. zo 10/28 10:51 T-Sheet-- Draft Copy was scanned into [employer] and attached to record. gb Administered Medications: 10/27 13:55 Drug: Acetaminophen 650 mg [acetaminophen 325 mg tablet (2 tabs)] Route: PO; mb9 Signatures: Dispatcher [employer] EDMS Adiel, Ronda, PSA PSA ms Micaela, Payal, Reg Reg Rosio Fregoso Brian, MD MD br1 Ross Mobley RN RN mb9 The chart was reviewed and I authenticate all verbal orders and agree with the evaluation and treatment provided.Attachments: 15:52 [facility] Payment Agreement zo 10/28 10:51 T-Sheet-- Draft Copy gb Chart Complete MTDD
--- NOTE | 2016-10-29 16:52 | EDDOCDS ---
Physician Documentation [facility] Name: Deena Nye Age: 25 yrs Sex: Female : 1990 Arrival Date: 10/27/2016 Time: 11:42 Bed RUST3 Private MD: Arnold Velasquez Disposition: 10/27/16 15:36 Discharged to Home/Self Care. Impression: Major depressive disorder, single episode, mild. - Condition is Stable. - Discharge Instructions: Depression, Adult. - Medication Reconciliation, Local Pharmacy Hours form. - Follow up: Arnold Velasquez; When: 2 - 3 days; Reason: Recheck today's complaints. - Problem is new. - Symptoms have improved. - Notes: You were seen in the ED for concerns of depression. Bloodwork showed no acute findings. Psychiatry was consulted and recommended that you may return home to continue following with mental health as an outpatient. Please call today to confirm your next appointment. Return to the ED for any worsening depression, thoughts of harming self or others or any other concerns. Historical: - Allergies: SULFA (SULFONAMIDES); - Home Meds: 1. Lexapro 30 mg Oral once daily (Last dose: 10/26/2016) 2. metformin 500 mg Oral tr24 1 tab once daily (Last dose: 10/26/2016) 3. Klonopin Unknown Oral Unknown pt unsure of dosage. medication just perscribed today. pt has yet to take medication. - PMHx: Polycystic Ovary Disease; Anxiety; Depression; - PSHx: Colonoscopy; Ear Tubes; - Social history: Smoking status: Patient states was never smoker of tobacco. No barriers to communication noted, The patient speaks fluent Urdu. - Family history: No immediate family members are acutely ill. - : The pt / caregiver states he / she is not on anticoagulants. Home medication list is obtained from the patient. - Exposure Risk Screening:: None identified. LICENSE AND PERMIT SPECIALIST: 10/27 11:52 LMP 08/21/2016 mb9 Vital Signs: 11:44 BP 123 / 75; Pulse 68; Resp 16; Temp 98.3(O); Pulse Ox 100% ; Weight 99.79 kg / 220 cmb lbs; Height 5 ft. 3 in. (160.02 cm); Pain 0/10; 15:47 BP 146 / 86; Pulse 74; Resp 16; Temp 98.4(T); Pulse Ox 98% on R/A; Pain 3/10; sew 11:44 Body Mass Index 38.97 (99.79 kg, 160.02 cm) cmb MDM: 12:05 Consult PFS/PSA/Head Animal Trainer ordered. br1 12:05 Consult PFS/PSA/Head Animal Trainer: Patient's case requires discussion with on-call br1 Psychiatrist ordered. 12:05 PSA/PFS to call Nursing Cheese Grader, to enter patient data on [place] Safe Act if patient br1 involuntarily admitted or transferred for SI or HI ordered. 12:05 Confirm accurate psychiatric medication list and times of last dosage ordered. br1 12:05 Detain Pt Until Medically/PFS Cleared ordered. br1 12:06 Acetaminophen Level Ordered. EDMS 12:07 Basic Metabolic Profile Ordered. EDMS 12:07 Complete Blood Count Ordered. EDMS 12:07 Drug Eval Toxicology ED Only Ordered. EDMS 12:07 Ethyl Alcohol (ethanol) Ordered. EDMS 12:07 HCG,Serum Qualitative Ordered. EDMS 12:07 Liver Profile Ordered. EDMS 12:07 Salicylate Level Ordered. EDMS 12:07 Thyroid Stimulating Hormone Ordered. EDMS 12:22 REGULAR DIET PLASTIC OROZCO+DIET ordered. EDMS 13:28 Acetaminophen Level Reviewed. br1 13:28 Basic Metabolic Profile Reviewed. br1 13:28 Liver Profile Reviewed. br1 13:28 Salicylate Level Reviewed. br1 13:28 Complete Blood Count Reviewed. br1 13:28 Drug Eval Toxicology ED Only Reviewed. br1 13:28 Ethyl Alcohol (ethanol) Reviewed. br1 13:28 HCG,Serum Qualitative Reviewed. br1 13:28 Thyroid Stimulating Hormone Reviewed. br1 13:43 Acetaminophen Tablet 650 mg PO once ordered. br1 13:56 Consult PFS/PSA/Socail Worker: Cleared medically for eval ordered. br1 14:22 Consult PFS/PSA/Head Animal Trainer complete. ms 14:22 Consult PFS/PSA/Head Animal Trainer: Patient's case requires discussion with on-call ms Psychiatrist complete. 14:22 PSA/PFS to call Nursing Cheese Grader, to enter patient data [place] Safe [place] if patient ms involuntarily admitted or transferred for SI or HI complete. 14:22 Consult PFS/PSA/Socail Worker: Cleared medically for eval complete. ms 15:50 Financial registration complete. zo 15:52 [facility] Payment Agreement was scanned into [employer] and attached to record. zo 10/28 10:51 T-Sheet-- Draft Copy was scanned into [employer] and attached to record. gb Administered Medications: 10/27 13:55 Drug: Acetaminophen 650 mg [acetaminophen 325 mg tablet (2 tabs)] Route: PO; mb9 Signatures: Dispatcher [employer] EDMS Adiel, Ronda, PSA PSA ms Micaela, Payal, Reg Reg Rosio Fregoso Brian, MD MD br1 Ross Mobley RN RN mb9 The chart was reviewed and I authenticate all verbal orders and agree with the evaluation and treatment provided.Attachments: 15:52 [facility] Payment Agreement zo 10/28 10:51 T-Sheet-- Draft Copy gb Chart Complete MTDD
== END 2016-10-27 15:51 | disposition home or self-care (01) ==
LOC: M ED 11:42
DX: F32.0 Major depressive disorder, single episode, mild (principal); E28.2 Polycystic ovarian syndrome; F41.9 Anxiety disorder, unspecified; Z96.22 Myringotomy tube(s) status; Z79.899 Other long term (current) drug therapy; Z88.2 Allergy status to sulfonamides
CPT/HCPCS: 36415; 80048; 80076; 80306; 84443; 84703; 85027; 99284; G0480

== ENCOUNTER 2017-09-29 19:07 | Inpatient (IN) | payer OTHER ==
[~2017-09-29] VITALS: Ht 160 cm; Wt 112.0 kg
[2017-09-29] MEDS ORDERED: SIME80TA PO (19:41)
[2017-09-29] MEDS ORDERED: REGL10TA6 PO (19:41)
[2017-09-29] MEDS ORDERED: COLA100C5 PO (19:41)
[2017-09-29] MEDS ORDERED: LABE20TAB PO (19:41)
[2017-09-29] MEDS ORDERED: OXYC1TAB23 PO (19:41)
[2017-09-29] MEDS ORDERED: IBUP80TA PO (19:41)
[2017-09-29] MEDS ORDERED: LEXA1TAB2 PO (19:41)
[2017-09-29 21:31] LABS: ALBUMIN 2.6 GM/DL (3.2-5.2); ALKALINE PHOSPHATASE 99 U/L (45-117); ALT/SGPT 20 U/L (12-78); ANION GAP 10 MEQ/L (8-16); AST/SGOT 17 U/L (7-37); BILIRUBIN,DIRECT < 0.1 MG/DL (0.0-0.2); BILIRUBIN,TOTAL 0.2 MG/DL (0.2-1.0); BLOOD UREA NITROGEN 8 MG/DL (7-18); CALCIUM LEVEL 8.3 MG/DL (8.5-10.1); CARBON DIOXIDE LEVEL 24 MEQ/L (21-32); CHLORIDE LEVEL 109 MEQ/L (98-107); CREATININE FOR GFR 0.63 MG/DL (0.55-1.02); GLOMERULAR FILTRATION RATE > 60.0 (>60); GLUCOSE, FASTING 98 MG/DL (70-105); POTASSIUM SERUM 4.1 MEQ/L (3.5-5.1); SODIUM LEVEL 143 MEQ/L (136-145); TOTAL PROTEIN 6.3 GM/DL (6.4-8.2)
[2017-09-29 21:37] LABS: MEAN CORPUSCULAR HEMOGLOBIN 30.6 pg (27.0-33.0); MEAN CORPUSCULAR HGB CONC 32.5 g/dl (32.0-36.5); MEAN CORPUSCULAR VOLUME 94.2 fl (80.0-96.0); PLATELET COUNT, AUTOMATED 285 10^3/uL (150-450); RED CELL DISTRIBUTION WIDTH 14.1 % (11.5-14.5); WHITE BLOOD COUNT 9.5 10^3/uL (4.0-10.0)
[2017-09-29] MEDS ORDERED: ACETAMINOPHEN TAB 650MG DOSE (2X325MG) PO PRN (22:15)
[2017-09-29] MEDS ORDERED: LORazepam 1 MG TAB PO PRN (22:15)
[2017-09-29] MEDS ORDERED: traZODone 50 MG TAB PO PRN (22:15)
[2017-09-29] MEDS ORDERED: MOM 30ML SUSPENSION UDC PO PRN (22:15)
[2017-09-29] MEDS ORDERED: MAALOX 30 ML SUSP *UDC PO PRN (22:15)
[2017-09-29] MEDS ORDERED: HALOPERIDOL 5 MG TAB PO PRN (22:15)
[2017-09-29] MEDS ORDERED: PATIENT COMMENT (22:36)
[2017-09-29] MEDS ORDERED: LABE10TAB PO (22:36)
[2017-09-29 23:54] VITALS: BP 162/91
[2017-09-30] MEDS ORDERED: PERCOCET 5MG/325MG TAB PO PRN
--- NOTE | 2017-09-30 00:48 | IPNPDOC ---
Text Note Date of Service The patient was seen on 09/30/17. NOTE 26yo delivered by emergent @ [facility] 09/26/17. Pt reports a longstanding history of depression. Has been on a variety of medications through the She states she had a panic attack during the . She also reports a poor reaction to xanax that was given to help her be calm. She is weepy, "I don't want to be here, want to be home with my baby." Reports adequate pain management with PO meds Percocet and Motrin. Fundus is firm. Wound clean, dry, well approximated with steri strips intact. No evidence infection Lochia rubra scant without odor Routine postoperative care during her stay in [facility]. VS,Fishbone, I+O VS, Fishbone, I+O Laboratory Tests 09/29/17 20:44 Red Blood Count 3.30 L, Mean Corpuscular Volume 94.2, Mean Corpuscular Hemoglobin 30.6, Mean Corpuscular Hemoglobin Concent 32.5, Red Cell Distribution Width 14.1 Vital Signs Date Time Temp Pulse Resp B/P (MAP) Pulse Ox O2 Delivery O2 Flow Rate FiO2 09/29/17 23:54 98.7 89 16 162/91 (114) 98 Room Air Maci Tran CNM Sep 30, 2017 00:48
[2017-09-30 06:57] VITALS: BP 148/90
[2017-09-30] MEDS: ESCITALOPRAM OXALATE 10 MG TAB (LEXAPRO) PO SCH (08:24)
[2017-09-30] MEDS: IBUPROFEN 800 MG TAB PO PRN ×3 (08:28→22:21)
[2017-09-30 18:00] VITALS: BP 164/84
[2017-09-30] MEDS: LABETALOL 100 MG TAB PO SCH (20:04)
--- NOTE | 2017-09-30 20:49 | MHHPE ---
DATE OF ADMISSION: 09/29/2017 CURRENT MEDICATIONS: - Lexapro 30 mg every morning CHIEF COMPLAINT: Frightening impulses to drown her baby. HISTORY OF PRESENT ILLNESS: This 26-year-old white female who just gave by emergency section on 09/26/2017 at 4:19 a.m. The patient had a difficult delivery with a great deal of pain. The patient had a number of panic attacks while going under general anesthesia. She had panic attack symptoms when the anesthesia resolved as well. The patient was given Xanax by the Ob-Blending Tank Helper doctor, 0.5 mg for a number of doses. She appeared to have had a possible adverse reaction. She states that she had feeling of doom and that she was in a "dark space". She was not able to focus. She went to the bathroom to fill up her bottle with water and had impulses or obsessive fears that she might drown her baby on purpose. This frightened her. The patient blames the Xanax for these symptoms. She does have a history of panic disorder dating back for approximately 12 years. She does have classic panic symptoms with shortness of breath, rapid heart rate and sweaty palms. Her last panic attack prior to this episode was September 2016 after she had a miscarriage. The patient also has a history of depression dating back 12 years as well. Last episode of depression also was in September 2016 after her miscarriage. The patient's mood was quite good during the . She was maintained on Lexapro during the entire . The had no adverse side effects from the SSRI fortunately according to the patient. PAST PSYCHIATRIC HISTORY: The patient was hospitalized at age 14 at [facility] and started on Lexapro at the time with good response. She was on 20 mg for many years, but the dose was increased about a year or two ago with positive benefit. The patient goes to a mental health center in the community. She has had no further hospitalizations over the years. She did volunteer to staff at age 14 when she was hospitalized she had thoughts about killing her mother which sound obsessive in nature. The patient shows no other signs or symptoms of obsessive-compulsive disorder (OCD), however. PAST MEDICAL HISTORY: Status post section. She has history of asthma. ALLERGIES: SULFA PRODUCTS: LEGAL ISSUES: None noted. CHEMICAL DEPENDENCY: The patient denies. SOCIAL HISTORY: The patient was born in [place] and raised in the [facility]. She graduated high school and has an associates degree. 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 The patient is . Her is a k[employer]ARIA reservist and works for [employer]. Relationship with her parents are good. The patient has three brothers. Relationship with them is good. She has known her for 8 years. They have been for 3 years. FAMILY PSYCHIATRIC HISTORY: Mother has history of mild anxiety. MENTAL STATUS EXAM: The patient is alert, oriented and cooperative. She is highly anxious. She has had some obsessive thoughts about harming her baby. She does have recent panic attacks. Affect appears sad, dysphoric and mildly depressed. She denies being suicidal or homicidal. No signs of psychosis or hearing voices or signs of paranoia, thought disorder. Insight and judgment appear reasonably good. The patient has had recent obsessive thoughts about harming infant, so the patient will need to be monitored closely for homicidal or suicidal ideation. No signs of organic deficits. ASSESSMENT: The patient appears to have had evidence of depression and anxiety and will need to be monitored closely. There are no signs of shanell or bipolar disorder however. DIAGNOSES:. Major depression, recurrent. Panic/anxiety disorder. PLAN: Continue Lexapro 30 mg per day. Use of Ativan as needed for anxiety symptoms. The patient will be allowed visitation rights with her under the supervision of her and staff.
[2017-10-01 06:51] VITALS: BP 144/83
[2017-10-01] MEDS: ESCITALOPRAM OXALATE 10 MG TAB (LEXAPRO) PO SCH (08:42)
[2017-10-01] MEDS: LABETALOL 100 MG TAB PO SCH ×2 (08:43→20:37)
[2017-10-01] MEDS: IBUPROFEN 800 MG TAB PO PRN ×3 (08:44→20:40)
--- NOTE | 2017-10-01 13:49 | MHIPNPDOC ---
[facility] Progress Note Progress Note DATE OF SERVICE: 10/01/17 HISTORY: Patient describes what brought her into the hospital. Describes not sleeping after the for 2 nights in a row and feeling very anxious and depressed. States that she slept 7 hours last night. Believes the sleep alone has made her feel better. She denies depression, SI intent and plan, did not endorse psychotic or manic symptoms. Patient looks forward to going home. VITAL SIGNS: See below. NEW TEST RESULTS: NA CURRENT MEDICATIONS: See below. MENTAL STATUS EXAMINATION: Appearance: obese, casually groomed Behavior: cooperative, friendly, related Speech: normal RRVT. Thought processes including: linear Thought content: appropriate to conversation Judgment: fair Insight: fair Orientation: AAOx3 Mood: good. Affect: euthymic, reactive, appropriate DIAGNOSES: 1. depression 2. MDD 3. FIORDALIZA ASSESSMENT: Patient is no longer depressed and looks forward to being with her family. MANAGEMENT PLAN: - Lexapro 30 mg daily - Continue PRN Ativan for anxiety TIME SPENT: 25 minutes. Vital Signs Vital Signs Date Time Temp Pulse Resp B/P (MAP) Pulse Ox O2 Delivery O2 Flow Rate FiO2 10/01/17 08:43 94 155/94 10/01/17 06:51 98.1 16 Room Air 09/29/17 23:54 98 Current Medications Current Medications Acetaminophen (Tylenol Tab) 650 mg Q6HP PRN PO HEADACHE or DISCOMFORT; Start 09/29/17 at 22:15; Stop 10/29/17 at 22:14 Al Hydrox/Mg Hydrox/Simethicone (Mylanta) 30 ml Q4HP PRN PO HEARTBURN/ INDIGESTION; Start 09/29/17 at 22:15; Stop 10/29/17 at 22:14 Escitalopram Oxalate (Lexapro) 30 mg DAILY PO Last administered on 10/01/17t 08:42; Start 09/30/17 at 09:00; Stop 10/30/17 at 08:59 Haloperidol (Haldol) 5 mg Q4HP PRN PO ANXIETY/AGITATION; Start 09/29/17 at 22: 15; Stop 10/29/17 at 22:14 Home Med (Med Rec Complete!) ASDIRECTED XX ; Start 09/29/17 at 22:45; Stop at 22:45; Status DC Ibuprofen (Advil) 800 mg Q6HP PRN PO MODERATE PAIN (PS 5-7) Last administered on 10/01/17 08:44; Start 09/30/17 at 00:45; Stop 10/30/17 at 00:44 Labetalol HCl (Normodyne, Trandate) 100 mg BID PO Last administered on 08:43; Start 09/30/17 at 21:00; Stop 10/30/17 at 20:59 Lorazepam (Ativan) 1 mg Q4HP PRN PO ANXIETY/AGITATION; Start 09/29/17 at 22:15 ; Stop 10/06/17 at 22:14 Magnesium Hydroxide (Milk Of Magnesia) 30 ml DAILYPRN PRN PO CONSTIPATION; Start 09/29/17 at 22:15; Stop 10/29/17 at 22:14 Oxycodone/ Acetaminophen (Percocet 5mg/ 325mg Tablet) 1 tab Q4HP PRN PO MILD/ MODERATE PAIN (PS 1-7) Last administered on 09/30/17 00:42; Start 09/30/17 at 00:00; Stop 10/07/17 at 00:00 Trazodone HCl (Desyrel) 50 mg QHSP PRN PO INSOMNIA; Start 09/29/17 at 22:15; Stop 10/29/17 at 22:14 Allergies Coded Allergies: Sulfa Antibiotics (Verified Allergy, Unknown, 09/29/17) Alprazolam (Verified Adverse Reaction, Unknown, 09/29/17) LOU SALINAS MD Oct 01, 2017 13:49
[2017-10-01 18:43] VITALS: BP 140/83
[2017-10-02] MEDS: IBUPROFEN 800 MG TAB PO PRN ×3 (06:35→20:23)
[2017-10-02 06:50] VITALS: BP 142/76
[2017-10-02] MEDS: ESCITALOPRAM OXALATE 10 MG TAB (LEXAPRO) PO SCH (08:03)
[2017-10-02] MEDS: LABETALOL 100 MG TAB PO SCH ×2 (08:03→20:25)
[2017-10-02 18:17] VITALS: BP 121/71
--- NOTE | 2017-10-02 20:51 | MHIPN ---
DATE: 10/02/2017 VITAL SIGNS: Temperature 97.8, pulse 77, respirations 14, blood pressure 142/76. CURRENT MEDICATIONS: - Lexapro 30 mg every morning DICTATION ENDED ABRUPTLY
--- NOTE | 2017-10-02 21:19 | MHIPN ---
DATE: 10/02/2017 VITAL SIGNS: Temperature 97.8, pulse 77, respirations 14, blood pressure 142/76. CURRENT MEDICATIONS: Lexapro 30 mg daily PSYCHIATRIC HISTORY: The patient reports she is less depressed. She is calmer and less anxious. She slept well last night. She feels more rested. She has had no thoughts of homicide or suicide. She had a good visit yesterday with her infant daughter and her . They are not able to come in today. She is not reporting any obsessive thoughts or rituals. Her section is healing well. She takes Motrin and not the Percocet. She has had no further panic attacks either. She is able to contract for safety. She is attending groups. She is doing well in the milieu according to staff. MENTAL STATUS EXAMINATION: Mood and affect appear much improved. She is less anxious. She feels definitely calmer. She has good eye contact. Grooming and hygiene are good. She is not homicidal or suicidal. She has had no obsessive thoughts as mentioned above. Insight and judgment appear quite good today. No signs of psychosis. Not hearing voices. No paranoia or thought disorder. DIAGNOSES: 1. Major depression, recurrent. 2. Panic anxiety disorder. PLAN: Continue Lexapro 30 mg per day. Monitor condition through the weekend. Staff to consult with her on Tuesday regarding her mental health progress.
[2017-10-03 06:49] VITALS: BP 145/87
[2017-10-03] MEDS: ESCITALOPRAM OXALATE 10 MG TAB (LEXAPRO) PO SCH (08:15)
[2017-10-03 08:16] VITALS: BP 145/87
[2017-10-03] MEDS: LABETALOL 100 MG TAB PO SCH (08:16)
[2017-10-03] MEDS: IBUPROFEN 800 MG TAB PO PRN (08:18)
--- NOTE | 2017-10-04 08:08 | HPE ---
DATE OF ADMISSION: 09/29/2017 HISTORY OF PRESENT ILLNESS (HPI): Please refer to the psychiatric history and evaluation for further details on this admission. This examination and history is intended for medical issues, which may need treatment, followup or consultation on this 26-year-old female. ALLERGIES: ALPRAZOLAM, SULFA ANTIBIOTICS. PRIMARY CARE PROVIDER: ELICIA Aguirre SOCIAL HISTORY: She is . She has a 7-day-old baby. Ethyl alcohol (EtOH) none. Smokes none. Recreational drug use none. PAST MEDICAL HISTORY: Asthma, she states when she gets sick. She takes no medications for it. PAST SURGICAL HISTORY: (C) section, cholecystectomy, colonoscopy, wisdom teeth extraction, PE tubes as a child. HOME MEDICATIONS: - Colace 100 mg by mouth three times a day - Lexapro 30 mg by mouth daily - simethicone 160 mg by mouth three times a day as needed for gas pain - labetalol 100 mg by mouth twice a day FAMILY HISTORY: Noncontributory. 10 systems review was done. Was unremarkable. Patient was feeling well. LABORATORY STUDIES: WBC 9l5, hemoglobin 10.1, hematocrit 31.1. Chemistry: BUN is 8, creatinine 0.63, sodium 143, potassium 41, chloride 109, CO2 24, anion gap 10. PHYSICAL EXAMINATION: 26-year-old, cooperative female, in no acute distress. Blood pressure 121/71, pulse 63, respirations 16, temperature 99. Patient is alert and oriented times three. Pupils equal and reactive to light. Extraocular movements (EOMS) intact. Cornea and sclerae clear. Conjunctiva is normal. No facial asymmetry. Pharynx, tongue and gums pink and moist. Tongue is midline. Neck is supple, without lymphadenopathy. No thyromegaly. No goiter. Chest clear to auscultation, without wheeze or retraction. Heart is regular. Abdomen is soft, nontender. No masses, pulsations or bruits. No organomegaly. Bowel sounds are positive. C section incision without redness or drainage. Peripheral pulse equal and palpable bilaterally. Skin is warm and dry. IMPRESSION/PLAN: 1. Psychiatric. Plan per psychiatry. 2. Continue labetalol 100 by mouth twice a day. 3. Continue followup with outpatient primary care provider and OB.
--- NOTE | 2017-10-04 12:50 | MHDS ---
DATE OF ADMISSION: 09/29/2017 DATE OF DISCHARGE: 10/03/2017 VITAL SIGNS: Temperature 99.4, pulse 79, respiration 19, blood pressure 145/87. LABS: CBC and differential showed low RBC, hemoglobin and hematocrit at 3.30, 10.1, and 31.1 respectively. Chem survey showed chloride elevated at 109, calcium low at 8.3. DISCHARGE DIAGNOSES: Major depression, recurrent. Panic anxiety disorder. DISCHARGE MEDICATIONS: Lexapro 30 mg a day CHIEF COMPLAINT: Homicidal impulses regarding her . HISTORY OF PRESENT ILLNESS: This is a 26-year-old white female who just gave by emergency on 09/26/2017 at 4:19 a.m. The patient had a difficult delivery with a great deal of pain. The patient reports having a number of panic attacks while going under general anesthesia. The patient was given Xanax by her FOUNDRY WORKER APPRENTICE with an adverse reaction. She had a feeling of dome and that she was in a "dark space". She was not able to focus and had obsessive impulses or fears that she might drown her baby. This frightened her and she informed staff. Xanax was quickly discontinued and then the patient was transferred from [facility] here to [facility] Emergency Department where she was admitted. The patient does have a history of depression and panic attacks with a good response to Lexapro over the years. PROGRESS ON THE UNIT: The patient was maintained on her Lexapro. The patient was initially quite anxious and dysphoric. Her mood sealed over quickly, however. She slept well on the unit. Her anxiety resolved as did her dysphoria. She was allowed special privileges to have the visit with her . This visit went well. The patient's confirmed this. The patient attended groups. She was active and verbal. She showed no further signs of anxiety or depression. No further panic attacks. She did not require any benzodiazepine treatment. She appeared future oriented. She had no obsessive thoughts to hurt herself or her child. The patient appeared to have returned to baseline mental functioning according to family. MENTAL STATUS EXAMINATION: At the time of discharged, mood and affect were quite good. She had good eye contact. Grooming and hygiene is good. No signs of anxiety or panic attacks. No signs of dangerousness. The patient was not psychotic. No signs of organicity. ASSESSMENT: The patient appeared to reach maximal hospital benefit. PLAN: The patient is safe to return home to the community with followup with mental health services.
== END 2017-10-03 14:20 | disposition home or self-care (01) | DRG 884 ==
LOC: M ED 19:07 → M ED INP 22:06 → M PSY 23:20
PROVIDERS: ADMIT Psychiatry & Neurology Psychiatry; ATTEND Psychiatry & Neurology Psychiatry
DX: F53 Mental and behavioral disorders associated with the puerperium, not elsewhere classified (principal); F33.9 Major depressive disorder, recurrent, unspecified; F41.0 Panic disorder [episodic paroxysmal anxiety]; Z88.2 Allergy status to sulfonamides; Z79.899 Other long term (current) drug therapy; Z88.8 Allergy status to other drugs, medicaments and biological substances

== ENCOUNTER → 2018-09-04 | Outpatient (CLI) | payer OTHER | LOC: M SLEEP 19:06 | DX: R40.0 Somnolence (principal) | CPT/HCPCS: 95810 ==

== ENCOUNTER → 2018-09-30 | Outpatient (CLI) | payer OTHER ==
[~2018-09-30] MED LIST: COLA100C5 PO; IBUP80TA PO; LABE10TAB PO; LABE20TAB PO; LEXA1TAB2 PO; OXYC1TAB23 PO; PATIENT COMMENT; REGL10TA6 PO; SIME80TA PO
--- NOTE | 2018-10-05 14:08 | SLEEPCENT ---
DATE OF STUDY: 09/25/2018 INTERPRETATION: Nocturnal polysomnography was performed for the determination of pressure therapy in this patient with mild-moderate obstructive sleep apnea with an apnea hypopnea index (AHI) of 14.8 and a respiratory disturbance index (RDI) of 15.6. Sleep apnea syndrome symptoms included excessive daytime sleepiness, insomnia, and nonrestorative sleep. A total of 7 hours and 55 minutes of data was reviewed for the entire titration with 423 minutes of sleep identified. Sleep latency was 21.5 minutes. Rapid eye movement (REM) latency was 162 minutes. All stages of sleep were identified. It should be noted that there was a higher percentage of delta sleep present than is listed on the report. Sleep efficiency was 90.6%. Electrocardiogram (EKG) showed normal sinus rhythm with an average heart rate of 65 beats per minute. No epileptiform discharge observed. The patient had been fit with a BMP [employer] and [employer] Simplus full face mask of small size, 4 cm of water pressure was applied to the circuit and the lights were dimmed. Continuous positive airway pressure (CPAP) begun at 4 cm of water pressure was taken to a high of 9 cm of water pressure. However, she appeared to be optimal on 7 cm of water pressure. On this pressure, her AHI was zero as was her respiratory arousal index (SOTO). Oxygen saturation flakito was in the 90th percentile. Periodic limb movement was 8.3. REM sleep was seen on this pressure with reasonably good waveform. No supine sleep was seen during the titration. However, on reviewing her diagnostic study no supine sleep was seen at that time either. IMPRESSION: 1. Obstructive sleep apnea, mild-moderate, reasonably palliated on CPAP at 7 cm of water pressure. The weakness of the study is that no supine sleep was observed though no supine sleep had been observed on her diagnostic study either. 2. Periodic limb movements, mild. RECOMMENDATIONS: Recommend continuation of CPAP therapy at the above pressure via a small [employer] Simplus full face mask or mask of her preference. Clinical correlation will be necessary to ensure eradication of symptoms. MARTHAD
== END ==
LOC: M SLEEP 20:00
PROVIDERS: ATTEND Internal Medicine Pulmonary Disease
DX: G47.33 Obstructive sleep apnea (adult) (pediatric) (principal); G47.69 Other sleep related movement disorders